=== PATIENT | male | born 1960 | race Two or more races ===

== ENCOUNTER 2019-03-12 20:45 | Emergency (ER) | payer SELFPAY ==
[~2019-03-12] VITALS: Ht 165.1 cm; Wt 86.2 kg
[2019-03-12 21:10] VITALS: BP 147/118
== END 2019-03-13 00:27 | disposition left against medical advice (07) ==
LOC: ER 20:52
DX: R10.9 Unspecified abdominal pain (principal); Z53.21 Procedure and treatment not carried out due to patient leaving prior to being seen by health care provider

== ENCOUNTER 2019-03-18 22:01 | Emergency (ER) | payer SELFPAY ==
[~2019-03-18] VITALS: Ht 165.1 cm; Wt 72.6 kg
[2019-03-19] MEDS ORDERED: cefTRIAXone SOD 1,000 MG VL IM ONE (01:45)
[2019-03-19] MEDS ORDERED: TETANUS-DIPTH-ACEL PERTUSSIS 0.5ML SYRG IM ONE (01:45)
[2019-03-19 02:54] VITALS: BP 136/87
== END 2019-03-19 02:57 | disposition home or self-care (01) ==
LOC: ER 22:02
DX: S71.111A Laceration without foreign body, right thigh, initial encounter (principal); W26.8XXA Contact with other sharp object(s), not elsewhere classified, initial encounter; Y93.89 Activity, other specified; Y92.89 Other specified places as the place of occurrence of the external cause; Y99.8 Other external cause status
CPT/HCPCS: 12002; 73552; 90471; 90715; 96372; 99283; J0696

== ENCOUNTER 2019-07-11 14:26 | Inpatient (IN) | payer MEDICAID ==
[~2019-07-11] VITALS: Ht 162.6 cm; Wt 95.2 kg
[2019-07-11] MEDS ORDERED: SODIUM CHLORIDE 0.9% 500 ML IV ONE (15:38)
[2019-07-11] MEDS ORDERED: HYDROmorphone HCL 2 MG/ML VL IV ONE (15:45)
[2019-07-11] MEDS ORDERED: ONDANSETRON HCL 4 MG/2 ML VIAL IV ONE (15:45)
[2019-07-11 16:40] LABS: Basophils # (auto) 0.1 10 ^3/uL (0-0.2); Basophils % (auto) 1.2 % (0.0-2.0); Eosinophils # (auto) 0.2 10 ^3/uL (0-0.8); Eosinophils % (auto) 3.1 % (0.0-7.0); Hematocrit 46.3 % (41.0-53.0); Hemoglobin 15.7 g/dL (13.5-17.5); Lymphocytes # (auto) 1.6 10 ^3/uL (0.4-5.4); Lymphocytes % (auto) 27.2 % (10.0-50.0); Mean Corpuscular Hemoglobin 30.4 pg (28.0-32.0); Mean Corpuscular Hgb Conc. 33.9 g/dL (32.0-36.0); Mean Corpuscular Volume 89.7 fL (80.0-100.0); Monocytes # (auto) 0.6 10 ^3/uL (0-1.3); Monocytes % (auto) 9.9 % (0.0-12.0); Neutrophils # (auto) 3.5 10 ^3/uL (1.6-8.6); Neutrophils % (auto) 58.6 % (37.0-80.0); Nucleated Red Blood Cells % 0.1 %; Platelet Count (auto) 241 10^3/uL (140-450); Red Blood Cells 5.16 10^6/uL (4.5-5.90); White Blood Cell 5.9 10^3/uL (4.4-10.8)
[2019-07-11 17:00] LABS: Albumin 3.8 g/dL (3.4-5.0); BUN/Creatinine Ratio 14.8; Calcium 8.8 mg/dL (8.5-10.1); Potassium 4.2 mmol/L (3.5-5.1)
[2019-07-11] MEDS ORDERED: IOHEXOL 300 MG/ML 100ML BOTTLE IJ ONE (17:39)
[2019-07-11 19:28] LABS: Urine WBC None Seen /hpf (0 - 3)
[2019-07-11 19:36] LABS: Urine Bacteria NONE SEEN /hpf (None Seen); Urine Blood Negative /uL (Negative)
[2019-07-11] MEDS ORDERED: ONDANSETRON HCL 4 MG/2 ML VIAL IV PRN (20:00)
[2019-07-11] MEDS ORDERED: HYDROmorphone HCL 2 MG/ML VL IV PRN (20:00)
[2019-07-11 21:37] VITALS: BP 151/96
--- NOTE | 2019-07-11 21:37 | NUR ---
[facility] admit from ER SUGEY SALINAS admitted to [facility] after SBAR received. Patient oriented to LYNDSAY CONSTANTINO RN primary RN, unit, room, bed, and unit policies regarding patient care and visiting hours. Patient weighed by bedscale and encouraged to call if they need something. All questions and concerns addressed, patient verbalized understanding.
[2019-07-11] MEDS: FAMOTIDINE (10MG/ML) 2ML VL IV SCH (22:16)
--- NOTE | 2019-07-11 22:25 | NUR ---
Hospitalist paged: Hospitalist paged d/t patient arriving to unit with a blood pressure of 151/96 and a HR of 61. Hospitalist returned page immediately and new orders were received and verified.
[2019-07-11] MEDS ORDERED: cloNIDine HCL 0.1 MG TAB PO ONE (22:30)
[2019-07-12 05:00] VITALS: BP 145/100
[2019-07-12 05:55] LABS: INR 1.01 (0.9-1.15); Partial Thromboplastin Time 29.3 sec (23.64-32.05)
--- NOTE | 2019-07-12 07:20 | NUR ---
Opening Shift Note Assumed care of patient, asleep,snoring,No S/S of distress/SOB or pain. will continue to monitor for changes Q1hr and PRN.
[2019-07-12 09:00] VITALS: BP 143/98
--- NOTE | 2019-07-12 11:00 | NUR ---
FAMILY VISITING AT BEDSIDE
[2019-07-12] MEDS: FAMOTIDINE (10MG/ML) 2ML VL IV SCH ×2 (11:16→22:16)
[2019-07-12] MEDS ORDERED: FOLIC ACID 1 MG, MULTIPLE VITAMIN 10 ML, MAGNESIUM SULF SDV 50% 8 MEQ, THIAMINE INJ 100... INJ SCH ×5 (12:00)
[2019-07-12 13:00] VITALS: BP 149/97
--- NOTE | 2019-07-12 13:35 | NUR ---
MD VISIT DR. CARDONA HERE TO SEE AND EXAMINED PATIENT RECEIVED ORDERS.
[2019-07-12] MEDS ORDERED: LOSARTAN POTASSIUM 25 MG TAB PO ONE (13:45)
[2019-07-12] MEDS ORDERED: amLODIPine BESYLATE 5 MG TAB PO ONE (13:45)
[2019-07-12 16:45] VITALS: BP 161/99
--- NOTE | 2019-07-12 21:00 | NUR ---
Per MD Stephens let Renée BUENROSTRO aware of the following: Can discharge patient home tomorrow. No surgical intervention at this time, can do procedure outpatient. Hernia manually reduced. Patient needs a PCP, social service order placed, before discharge. Patient needs to stop smoking because it causes coughing which can cause hernia to worsen. No heavy lifting. PCP will need Cardio clearance outpatient for procedure. Patient needs to wear abdominal binder. Already given. Read back to MD Stephens and confirmed. Can have soft diet and advance as tolerated per MD Stephens. Addendum: 07/12/19 at 0544 by Delano Gan RN hernia repair procedure outpatient will mostly likely to be lap.
[2019-07-12 22:00] VITALS: BP 151/101
[2019-07-13 05:00] VITALS: BP 128/87
[2019-07-13 05:54] LABS: Basophils # (auto) 0.1 10 ^3/uL (0-0.2); Basophils % (auto) 1.1 % (0.0-2.0); Eosinophils # (auto) 0.2 10 ^3/uL (0-0.8); Eosinophils % (auto) 3.4 % (0.0-7.0); Hematocrit 44.8 % (41.0-53.0); Hemoglobin 15.5 g/dL (13.5-17.5); Lymphocytes # (auto) 1.7 10 ^3/uL (0.4-5.4); Lymphocytes % (auto) 30.7 % (10.0-50.0); Mean Corpuscular Hgb Conc. 34.7 g/dL (32.0-36.0); Mean Corpuscular Volume 89.4 fL (80.0-100.0); Monocytes # (auto) 0.5 10 ^3/uL (0-1.3); Monocytes % (auto) 9.3 % (0.0-12.0); Neutrophils % (auto) 55.5 % (37.0-80.0); Platelet Count (auto) 219 10^3/uL (140-450); Red Blood Cells 5.01 10^6/uL (4.5-5.90); White Blood Cell 5.5 10^3/uL (4.4-10.8)
[2019-07-13 06:16] LABS: Albumin 3.3 g/dL (3.4-5.0); Calcium 8.6 mg/dL (8.5-10.1); Potassium 3.8 mmol/L (3.5-5.1)
[2019-07-13 06:22] LABS: BUN/Creatinine Ratio 10.5; Bilirubin, Total 1.4 mg/dL (0.2-1.0)
--- NOTE | 2019-07-13 07:45 | NUR ---
Provided report to sergio rock. notified Davy to pass the following to the cole BUENROSTRO from Dr alcaraz. Per MD Alcaraz let Cole BUENROSTRO aware of the following: Can discharge patient home tomorrow. 07/13/19 No surgical intervention at this time, can do procedure outpatient. Hernia manually reduced. Patient needs a PCP, social service order placed, before discharge. Patient needs to stop smoking because it causes coughing which can cause hernia to worsen. No heavy lifting. PCP will need Cardio clearance outpatient for procedure. patient is resting in bed with no signs or symptoms of distress.
[2019-07-13 09:25] VITALS: BP 127/88
[2019-07-13] MEDS: amLODIPine BESYLATE 5 MG TAB PO SCH (10:14)
[2019-07-13] MEDS: FAMOTIDINE (10MG/ML) 2ML VL IV SCH ×2 (10:15→21:52)
[2019-07-13] MEDS: LOSARTAN POTASSIUM 25 MG TAB PO SCH (10:15)
--- NOTE | 2019-07-13 10:20 | NUR ---
PASSED MORNING MEDICATIONS, PT TOLERATED WELL. DENIES ANY DISCOMFORT. BED LOCKED AND IN LOWEST POSITION, CALL LIGHT WITHIN REACH. WILL CONTINUE TO MONITOR.
[2019-07-13 12:58] VITALS: BP 140/92
--- NOTE | 2019-07-13 13:28 | NUR ---
DR. COATS IN TO EVALUATE RIGHT INGUINAL PROTRUSION. DR. CARDONA IN TO SEE PT.
--- NOTE | 2019-07-13 15:10 | NUR ---
UROLOGY CONSULT CALLED.
--- NOTE | 2019-07-13 16:05 | NUR ---
assessment Per consult no pcp. Mey Aldana has seen patient for PCP. Dr Rivera to follow Addendum: 07/13/19 at 1607 by Mey Avitia Amended: Links added.
[2019-07-13 17:40] VITALS: BP 123/81
--- NOTE | 2019-07-13 19:00 | NUR ---
Opening Shift Note Assumed care of patient, awake and alert. No S/S of distress/SOB or pain. Instructed on POC and to call for assist PRN, will continue to monitor for changes Q1hr and PRN. Pt in the lowest possible position with bed rails up x2 and call light within reach.
[2019-07-13 20:00] VITALS: BP 144/89
[2019-07-13 22:00] VITALS: BP 144/89
[2019-07-14] VITALS (7 sets, daily range): BP systolic 127–154; BP diastolic 67–109
--- NOTE | 2019-07-14 06:59 | NUR ---
Closing note pt in the lowest possible position with call light within reach, will endorse to day shift RN.
[2019-07-14] MEDS: FAMOTIDINE (10MG/ML) 2ML VL IV SCH ×2 (10:23→21:53)
[2019-07-14] MEDS: LOSARTAN POTASSIUM 25 MG TAB PO SCH (10:23)
[2019-07-14] MEDS: amLODIPine BESYLATE 5 MG TAB PO SCH (10:24)
[2019-07-14] MEDS ORDERED: MAGNESIUM SULFATE 1GM/100ML 100 ML IV ONE (10:45)
--- NOTE | 2019-07-14 11:05 | NUR ---
EKG DONE, RESULT PROVIDED TO BILLING SUPERVISOR RYAN. BILLING SUPERVISOR AT BEDSIDE , PLAN OF CARE DISCUSSED.
--- NOTE | 2019-07-14 13:20 | NUR ---
DR. CARDONA IN TO SEE PT. PLAN OF CARE DISCUSSED.
--- NOTE | 2019-07-14 18:00 | NUR ---
APPLICATION OF CREAM BARRIER TO RIGHT KNEE SCAB.
--- NOTE | 2019-07-14 19:00 | NUR ---
Opening Shift Note Assumed care of patient, awake and alert. No S/S of distress/SOB or pain. Pt has ice pack in his groin area for inguinal pain. Pt stated that the ice pack is helping, instructed pt to call when he needs new ice in the pack once it melts. Instructed on POC and to call for assist PRN, will continue to monitor for changes Q1hr and PRN. Pt in lowest possible position with bed rails up x2 and call light within reach.
--- NOTE | 2019-07-14 19:05 | NUR ---
IV inserted on 07/10. Pt refuses new IV insertion, if pt stays longer he has been informed that he would need a new one.
[2019-07-15 02:00] VITALS: BP 148/86
[2019-07-15 05:46] VITALS: BP 134/68
--- NOTE | 2019-07-15 06:55 | NUR ---
Closing notes Pt in lowest possible position, bed rails up x2, and call light within reach. Will endorse to day shift.
[2019-07-15] MEDS: LOSARTAN POTASSIUM 25 MG TAB PO SCH (09:56)
[2019-07-15] MEDS: FAMOTIDINE (10MG/ML) 2ML VL IV SCH (09:56)
[2019-07-15] MEDS: amLODIPine BESYLATE 5 MG TAB PO SCH (09:57)
[2019-07-15 11:36] VITALS: BP 140/98
--- NOTE | 2019-07-15 12:46 | NUR ---
pt discharged home accompanied by his sister information and education reviewed with pt pt verbalized understanding iv removed dry dressing in place no respiratory distress noted
--- NOTE | 2019-07-15 15:39 | NUR ---
assessment Patient is a 59 year old male who is alert and oriented. Patients cognitive abilities are intact. Prior to admission patient lived home with family and functioned independently. Patient informed me he is able to care for his own ADLs. Per patient he will return home to his prior living arrangements post discharge and family will transport him home. Patient has no need for DME. I spoke to patient about his ETOH usage and patient informed me he has no issues and does not need resources. Patient has no post discharge needs at this time. I informed patient he has a right to speak to a neonatal social worker regarding all care. I informed patient he has a right to participate in any and all discharge planning. Patient does not have a POA and advanced directive. I have offered patient information on POA and advanced directives. I informed the patient the advantages and benefits of having an Advanced Directive. Patient verbalized understanding and agreed to discharge plan. Addendum: 07/15/19 at 1541 by Mey RENEE Amended: Links added.
== END 2019-07-15 12:45 | disposition home or self-care (01) | DRG 254 ==
LOC: ER 14:28 → OVERFLOW 14:29 → CENTRAL 21:51
PROVIDERS: ADMIT Nurse Practitioner Acute Care; ATTEND Internal Medicine Nephrology
DX: K40.30 Unilateral inguinal hernia, with obstruction, without gangrene, not specified as recurrent (principal); E83.42 Hypomagnesemia; I50.30 Unspecified diastolic (congestive) heart failure; E66.9 Obesity, unspecified; F10.20 Alcohol dependence, uncomplicated; I10 Essential (primary) hypertension; N50.811 Right testicular pain; K57.30 Diverticulosis of large intestine without perforation or abscess without bleeding; F11.10 Opioid abuse, uncomplicated; I16.9 Hypertensive crisis, unspecified; I86.1 Scrotal varices; F17.210 Nicotine dependence, cigarettes, uncomplicated; K40.90 Unilateral inguinal hernia, without obstruction or gangrene, not specified as recurrent; F19.10 Other psychoactive substance abuse, uncomplicated; F15.10 Other stimulant abuse, uncomplicated; Z91.19 Patient's noncompliance with other medical treatment and regimen; Z68.36 Body mass index [BMI] 36.0-36.9, adult
CPT/HCPCS: 36415; 71045; 74177; 76870; 80053; 80061; 81001; 83036; 83735; 83880; 85025; 85610; 85730; 86850; 86900; 86901; 93306; 96361; 96374; 96375; G0378; J2405; J3490

== ENCOUNTER 2019-07-20 16:22 | Emergency (ER) | payer MEDICAID ==
[2019-07-20 20:30] VITALS: BP 111/65
== END 2019-07-20 20:50 | disposition home or self-care (01) ==
LOC: ER 16:22
DX: K40.90 Unilateral inguinal hernia, without obstruction or gangrene, not specified as recurrent (principal); F17.210 Nicotine dependence, cigarettes, uncomplicated
CPT/HCPCS: 74176